=== PATIENT | female | born 1965 | race Caucasian/White ===

== ENCOUNTER 2019-06-18 21:10 | Emergency (ER) | payer BC ==
[2019-06-18] MEDS ORDERED: Lactated Ringers 1,000 ML IV ONE ×2 (21:18→22:33)
[2019-06-18] MEDS ORDERED: Ondansetron 4 MG/2 ML SDV IVPUSH ONE ×2 (21:18→22:33)
[2019-06-18] MEDS ORDERED: Sodium Chloride 0.9% 10 ML Syringe FLUSH PRN (21:18)
--- NOTE | 2019-06-18 21:25 | EDM.PDOC ---
ED HPI GENERAL MEDICAL PROBLEM - General Chief Complaint: Gastrointestinal Problem Stated Complaint: NOT FEELING WELL Time Seen by Provider: 06/18/19 21:18 Source of Information: Reports: Patient History Limitations: Reports: No Limitations - History of Present Illness INITIAL COMMENTS - FREE TEXT/NARRATIVE: Patient presents with complaints of nausea and vomiting since around 3 pm. She states she was in the shower when initial episode took place. Reports she had to lie down due to nausea. Also complains of some vertigo/dizziness earlier but currently denies this at this time. Denies any recent illness. Did have normal bowel movement today. Describes pain as cramplike in the umbilicus area with no radiation. Still does have appendix and gall bladder. Denies chest pain, sob, blood in urine or stools. No urinary complaints. Denies headache, dizziness. Prior history of left sided breast cancer with lumpectomy approximately 13 years ago. Onset: Today, Sudden Duration: Intermittent Associated Symptoms: Reports: Nausea/Vomiting - Related Data Allergies Allergy/AdvReac Type Severity Reaction Status Date / Time cat dander Allergy Other Verified 06/18/19 21:57 cephalexin Allergy Other Verified 06/18/19 21:20 erythromycin base Allergy Nausea Verified 06/18/19 21:20 milk Allergy Nausea Verified 06/18/19 21:57 mold Allergy Headache Verified 06/18/19 21:57 Penicillins Allergy Rash Verified 06/18/19 21:20 tetracycline Allergy Nausea and Verified 06/18/19 21:20 Vomiting wheat Allergy Abdominal Verified 06/18/19 21:57 Pain Yeast Allergy Nausea and Verified 06/18/19 21:57 Vomiting Home Meds: Home Meds Multivitamin [Multivitamins] 1 each PO DAILY 06/18/19 [History] PARoxetine HCl [Paxil] 40 mg PO DAILY 06/18/19 [History] ED ROS GENERAL - Review of Systems Review Of Systems: See Below Constitutional: Reports: No Symptoms HEENT: Reports: No Symptoms Respiratory: Reports: No Symptoms Cardiovascular: Reports: No Symptoms Endocrine: Reports: No Symptoms GI/Abdominal: Reports: Abdominal Pain, Nausea, Vomiting : Reports: No Symptoms Musculoskeletal: Reports: No Symptoms Skin: Reports: No Symptoms Neurological: Reports: Dizziness (not currently) Psychiatric: Reports: No Symptoms Hematologic/Lymphatic: Reports: No Symptoms Immunologic: Reports: No Symptoms ED EXAM, GI/ABD - Physical Exam Exam: See Below Exam Limited By: No Limitations General Appearance: Alert, WD/WN, Mild Distress Eyes: Bilateral: Normal Appearance, EOMI Ears: Normal TMs Nose: Normal Inspection, Normal Mucosa, No Blood Throat/Mouth: Normal Inspection, Normal Lips, Normal Teeth, Normal Gums, Normal Oropharynx, Normal Voice, No Airway Compromise Head: Atraumatic, Normocephalic Neck: Normal Inspection, Supple, Non-Tender, Full Range of Motion Respiratory/Chest: No Respiratory Distress, Lungs Clear, Normal Breath Sounds, No Accessory Muscle Use, Chest Non-Tender Cardiovascular: Normal Peripheral Pulses, Regular Rate, Rhythm, No Edema, No Gallop, No JVD, No Murmur, No Rub GI/Abdominal Exam: Normal Bowel Sounds, Soft, Non-Tender, No Organomegaly, No Distention (Female) Exam: Deferred Rectal (Female) Exam: Deferred Back Exam: Normal Inspection, Full Range of Motion, NT Extremities: Normal Inspection, Normal Range of Motion, Non-Tender, Normal Capillary Refill, No Pedal Edema Neurological: Alert, Oriented, CN II-XII Intact, Normal Cognition, Normal Gait, Normal Reflexes, No Motor/Sensory Deficits Psychiatric: Normal Affect, Normal Mood Skin Exam: Warm, Dry, Intact, Normal Color, No Rash Lymphatic: No Adenopathy Course - Vital Signs Last Recorded V/S: Last Vital Signs Temp 35.7 C 06/18/19 21:10 Pulse 88 06/18/19 21:10 Resp 18 06/18/19 21:10 BP 122/55 L 06/18/19 21:10 Pulse Ox 98 06/18/19 21:10 - Orders/Labs/Meds Orders: Active Orders 24 hr Category Date Time Status AMYLASE [CHEM] Stat Lab 06/18/19 21:26 Received COMPREHENSIVE METABOLIC PN,CMP [CHEM] Stat Lab 06/18/19 21:26 Received MAGNESIUM [CHEM] Stat Lab 06/18/19 21:26 Received TSH ULTRASENSITIVE [CHEM] Stat Lab 06/18/19 21:26 Received Lactated Ringers [Ringers, Lactated] 1,000 ml Med 06/18/19 21:18 Active IV ONETIME Sodium Chloride 0.9% [Saline Flush] Med 06/18/19 21:18 Active 10 ml FLUSH ASDIRECTED PRN Saline Lock Insert [OM.PC] Routine Oth 06/18/19 21:18 Ordered Medication Orders Lactated Ringer's (Ringers, Lactated) 1,000 mls @ 999 mls/hr IV ONETIME ONE Stop: 06/18/19 22:18 Last Admin: 06/18/19 21:30 Dose: 999 mls/hr Sodium Chloride (Saline Flush) 10 ml FLUSH ASDIRECTED PRN PRN Reason: Keep Vein Open Labs: Laboratory Tests 06/18/19 Range/Units 21:26 WBC 5.3 (4.0-10.0) x10^3/uL RBC 3.82 L (4.00-5.50) x10^6/uL Hgb 10.8 L (12.0-16.0) g/dL Hct 33.0 (33.0-47.0) % MCV 86.4 (78.0-93.0) fL MCH 28.3 (26.0-32.0) pg MCHC 32.7 (32.0-36.0) g/dL RDW Coeff of [place] 14.6 (10.0-15.0) % Plt Count 224 (130-400) x10^3/uL Neut % (Auto) 52.6 (50.0-80.0) % Lymph % (Auto) 38.1 (25.0-50.0) % Divide % (Auto) 7.6 (2.0-11.0) % Eos % (Auto) 1.3 (0.0-4.0) % Baso % (Auto) 0.4 (0.2-1.2) % Meds: Medications Generic Name Dose Route Start Last Admin Trade Name Freq PRN Reason Stop Dose Admin Lactated Ringer's 1,000 mls @ 999 mls/hr 06/18/19 21:18 06/18/19 21:30 Ringers, Lactated IV 06/18/19 22:18 999 mls/hr ONETIME ONE Administration Sodium Chloride 10 ml 06/18/19 21:18 Saline Flush FLUSH ASDIRECTED PRN Keep Vein Open Discontinued Medications Generic Name Dose Route Start Last Admin Trade Name Freq PRN Reason Stop Dose Admin Ondansetron HCl 4 mg 06/18/19 21:18 06/18/19 21:30 Zofran IVPUSH 06/18/19 21:19 4 mg ONETIME ONE Administration - Re-Assessments/Exams Free Text/Narrative Re-Assessment/Exam: 06/18/19 22:59 CT abdomen ordered due to continued abdominal pain. After scan reported that she now thinks this may be vertigo. On initial exam and history she stated dizziness while in shower, but nothing since that time. She now complains of dizziness when moving her head or opening her eyes. 06/19/19 00:38 Patient significantly better after IV diazepam and diphenhydramine administration. Did discharge home Departure - Departure Time of Disposition: 00:15 Disposition: Home, Self-Care 01 Condition: Fair Clinical Impression: Gastroenteritis, Vertigo - Discharge Information *PRESCRIPTION DRUG MONITORING PROGRAM REVIEWED*: Not Applicable *COPY OF PRESCRIPTION DRUG MONITORING REPORT IN PATIENT CLEMENTE: Not Applicable Instructions: Viral Gastroenteritis, Adult, [id number], Vertigo, [id number] Forms: ED Department Discharge Additional Instructions: Plan Stay well hydrated Take dramamine for your vertigo and schedule follow up appointment with your primary provider for additional diagnostic tests If the dramamine does not help with the vertigo, you can try meclizine/ antivert. This is a prescription and I have given one to you You may need to miss work tomorrow if you are not feeling better Please call us if you have any questions or additional concerns - Problem List & Annotations (1) Gastroenteritis SNOMED Code(s): 95245269 Code(s): K52.9 - NONINFECTIVE GASTROENTERITIS AND COLITIS, UNSPECIFIED Status: Acute Priority: Low Current Visit: Yes (2) Vertigo SNOMED Code(s): 021606165 Code(s): R42 - DIZZINESS AND GIDDINESS Status: Acute Priority: Medium Current Visit: Yes - Problem List Review Problem List Initiated/Reviewed/Updated: Yes - My Orders Last 24 Hours: My Active Orders 06/18/19 21:18 Lactated Ringers [Ringers, Lactated] 1,000 ml IV ONETIME Sodium Chloride 0.9% [Saline Flush] 10 ml FLUSH ASDIRECTED PRN Saline Lock Insert [OM.PC] Routine 06/18/19 21:26 AMYLASE [CHEM] Stat COMPREHENSIVE METABOLIC PN,CMP [CHEM] Stat MAGNESIUM [CHEM] Stat TSH ULTRASENSITIVE [CHEM] Stat - Assessment/Plan Last 24 Hours: My Active Orders 06/18/19 21:18 Lactated Ringers [Ringers, Lactated] 1,000 ml IV ONETIME Sodium Chloride 0.9% [Saline Flush] 10 ml FLUSH ASDIRECTED PRN Saline Lock Insert [OM.PC] Routine 06/18/19 21:26 AMYLASE [CHEM] Stat COMPREHENSIVE METABOLIC PN,CMP [CHEM] Stat MAGNESIUM [CHEM] Stat TSH ULTRASENSITIVE [CHEM] Stat Assessment:: vertigo gastroenteritis Plan: Plan Stay well hydrated Take dramamine for your vertigo and schedule follow up appointment with your primary provider for additional diagnostic tests If the dramamine does not help with the vertigo, you can try meclizine/ antivert. This is a prescription and I have given one to you You may need to miss work tomorrow if you are not feeling better Please call us if you have any questions or additional concerns
[2019-06-18 22:00] LABS: ANION GAP 13.9 mmol/L (10-20); CHLORIDE,CL 103 mmol/L (98-107); SODIUM,NA 138 mmol/L (136-145)
[2019-06-18] MEDS ORDERED: Iopamidol 612 MG/ML 100 ML Bottle IVPUSH ONE (22:25)
[2019-06-18] MEDS ORDERED: Meclizine 25 MG Tab PO ONE (22:53)
[2019-06-18] MEDS ORDERED: Diazepam 5 MG Tab PO ONE (22:53)
[2019-06-18] MEDS ORDERED: diphenhydrAMINE 50 MG/ML SDV IVPUSH ONE (22:57)
[2019-06-18] MEDS ORDERED: Metoclopramide 10 MG/2 ML SDV IVPUSH ONE (23:42)
[2019-06-18] MEDS ORDERED: Pantoprazole 40 MG Vial IVPUSH ONE (23:43)
--- NOTE | 2019-06-19 08:10 | CT ---
[id number] CT/CT Abdomen Pelvis W IV EXAM: CT Abdomen Pelvis W IV CLINICAL DATA: ABDOMINAL PAIN, NAUSEA, VOMITING, HX IBS COMPARISON STUDY: None. FINDINGS: Bibasilar scarring. Liver, spleen, gallbladder, pancreas, and adrenal glands are unremarkable. There is a punctate nonobstructing right renal calculus. Bilateral renal cysts. No bowel obstruction or inflammation. Large amount of retained stool within the colon especially within the rectum. The appendix is visualized and appears normal. No lymphadenopathy, free fluid, or pneumoperitoneum. Scattered changes of spondylosis the spine. No fracture or osseous lesion. IMPRESSION: Large amount of retained stool within the colon especially within the rectum. Correlate for signs of constipation. Impaction is not excluded. Castro Kim DO 06/19/19 0809 Thank you for allowing us to participate in the care of your patient.
== END 2019-06-19 00:25 | disposition home or self-care (01) ==
LOC: VM.ED 21:10
DX: K52.9 Noninfective gastroenteritis and colitis, unspecified (principal); Z79.899 Other long term (current) drug therapy; Z91.018 Allergy to other foods; Z91.09 Other allergy status, other than to drugs and biological substances; Z88.0 Allergy status to penicillin; Z88.1 Allergy status to other antibiotic agents; Z91.011 Allergy to milk products
CPT/HCPCS: 74177; 80053; 82150; 83735; 84443; 85025; 96361; 96374; 96375; 96376; 99284; A9270; C9113; J1200; J2405; J2765; J3360; J7120; Q9967

== ENCOUNTER 2023-06-07 17:10 | Emergency (ER) | payer BC ==
[2023-06-07] MEDS ORDERED: hydrOXYzine HCl 25 MG Tab PO ONE (17:38)
[2023-06-07] MEDS ORDERED: QUEtiapine 25 MG Tab PO SCH (18:30)
== END 2023-06-07 17:56 | disposition home or self-care (01) ==
LOC: VM.ED 17:10
DX: L30.9 Dermatitis, unspecified (principal); Z79.899 Other long term (current) drug therapy; Z88.0 Allergy status to penicillin; Z88.1 Allergy status to other antibiotic agents; Z91.018 Allergy to other foods; Z91.011 Allergy to milk products; Z91.048 Other nonmedicinal substance allergy status; Z88.8 Allergy status to other drugs, medicaments and biological substances
CPT/HCPCS: 99282; A9270